=== PATIENT | female | born 1990 | race African-American/Black ===

== ENCOUNTER 2019-12-15 12:40 | Emergency (ER) | payer MEDICAID ==
[~2019-12-15] VITALS: Ht 177.8 cm; Wt 87.0 kg
[2019-12-15] MEDS ORDERED: KETOROLAC 30MG/ML VIAL IV STA (14:15)
[2019-12-15] MEDS ORDERED: ONDANSETRON HCL 4MG/2ML INJ IV STA (14:15)
[2019-12-15] MEDS ORDERED: SODIUM CHLORIDE 0.9% 1,000 ML IV ONE (14:15)
[2019-12-15 14:51] LABS: BASOPHILS % 0.3 % (0.0-2.0); HEMATOCRIT. 42.7 % (36.0-48.0); LYMPHOCYTES % 8.8 % (20.0-50.0); MEAN CORPUSCULAR HEMOGLOBIN 33.3 pg (28.0-32.0); MEAN CORPUSCULAR VOLUME 94.7 fL (81.0-99.0); MEAN PLATELET VOLUME 10.3 fl (7.4-10.4); MONOCYTES % 5.2 % (2.0-8.0); NEUTROPHILS % 85.7 % (40.0-76.0); PLATELET 226 x1000/uL (130-400); RED BLOOD CELL COUNT 4.51 mill/uL (4.2-5.4); RED CELL DISTRIBUTION WIDTH 12.8 % (11.6-14.6)
[2019-12-15 14:54] LABS: CHLORIDE 105 mEq/L (98-107)
[2019-12-15 15:07] LABS: CLARITY URINE TURBID (CLEAR); COLOR URINE DK YELLOW (YELLOW); KETONES URINE TRACE (NEGATIVE); LEUKOCYTE ESTERASE URINE 3+ (NEGATIVE); NITRITE URINE POSITIVE (NEGATIVE); OCCULT BLOOD URINE 2+ (NEGATIVE); PH URINE 7.5 (4.5-8.0); PROTEIN URINE 2+ (NEGATIVE); SPECIFIC GRAVITY URINE 1.019 (1.005-1.030)
[2019-12-15 15:28] LABS: HCG SCREEN NEGATIVE
[2019-12-15] MEDS ORDERED: KETOROLAC 15MG/ML VIAL IV ONE (16:30)
[2019-12-15] MEDS ORDERED: CEFTRIAXONE 1 G PREMIX 50 ML IV ONE (16:30)
[2019-12-15 16:51] VITALS: BP 123/69
== END 2019-12-15 16:55 | disposition left against medical advice (07) ==
LOC: ER 12:40
DX: N13.2 Hydronephrosis with renal and ureteral calculous obstruction (principal); J45.909 Unspecified asthma, uncomplicated; Z88.6 Allergy status to analgesic agent
CPT/HCPCS: 36415; 71045; 74176; 80053; 81003; 81025; 83690; 84703; 85025; 87077; 87086; 87186; 93005; 96365; 96375; 96376; 99285; J0696; J1885; J2405; J7030